=== PATIENT | female | born 1955 | race Caucasian/White ===

== ENCOUNTER 2019-11-17 16:18 | Emergency (ER) | payer OTHER ==
[2019-11-17 16:28] VITALS: BP 117/82
--- NOTE | 2019-11-17 17:44 | ER Document Report ---
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 They iced and elevated spoke with home health nurse that recommend he come in for a rule out DVT. Also spoke with [facility] and was given the same advice. Denies any trauma or injury. States pain has improved with decrease swelling after icing and elevating it. No other travel outside of going to [facility]. No history of DVT or PE. Not currently on blood thinners. Was told that the IV Fastin and can cause DVTs PE: Mild distress noted. Full range of motion with flexion, extension and lateral movement of right knee without difficulty. Nontender to palpation. Negative Homans. I have greeted and performed a rapid initial assessment of this patient. A comprehensive ED assessment and evaluation of the patient, analysis of test results and completion of the medical decision making process will be conducted by additional ED providers. I have specifically instructed the patient or family members with the patient to immediately return to any nursing staff should anything change in the patient's condition or with their chief complaint. - Related Data Home Medications: lisinopril. flonase. keppra. synthroid. chemo. lavstin. gout meds Physical Exam - Vital signs Vitals: Temp Pulse Resp BP Pulse Ox 97.5 F 96 18 117/82 97 11/17/19 16:26 11/17/19 16:26 11/17/19 16:26 11/17/19 16:26 11/17/19 16:26 Course - Vital Signs Vital signs: Temp Pulse Resp BP Pulse Ox 97.5 F 96 18 117/82 97 11/17/19 17:34 11/17/19 16:26 11/17/19 16:26 11/17/19 16:26 11/17/19 16:26
--- NOTE | 2019-11-17 18:05 | RADIOLOGY REPORT (SQ) ---
EXAM DESCRIPTION: KNEE RIGHT 4 VIEWS IMAGES COMPLETED DATE/TIME: 11/17/2019 5:57 pm REASON FOR STUDY: Pain, swelling COMPARISON: None. NUMBER OF VIEWS: Four views. TECHNIQUE: AP, lateral, and both oblique radiographic images acquired of the right knee. LIMITATIONS: None. FINDINGS: MINERALIZATION: Normal. BONES: No acute fracture or dislocation. No worrisome bone lesions. JOINT: No effusion. SOFT TISSUES: No soft tissue swelling. No radio-opaque foreign body. OTHER: No other significant finding. IMPRESSION: 1. No acute osseous findings. TECHNICAL DOCUMENTATION: JOB ID: [id number] 2010 [employer]- All Rights Reserved Reading location - IP/workstation name: [email or web address]
[2019-11-17 20:24] LABS: INTERNATIONAL RATION (INR) 0.94; PROTHROMBIN TIME 12.5 SEC (11.4-15.4)
[2019-11-17 20:30] LABS: ABSOLUTE EOSINOPHILS # (AUTO) 0.1 10^3/uL (0.0-0.6); ABSOLUTE LYMPHOCYTES (AUTO) 0.4 10^3/uL (0.5-4.7); ABSOLUTE MONOCYTES (AUTO) 0.5 10^3/uL (0.1-1.4); ABSOLUTE NEUT (AUTO) 3.9 10^3/uL (1.7-8.2); BASOPHILS % (AUTO) 0.4 % (0-2); EOSINOPHILS % (AUTO) 1.4 % (0-6); HEMATOCRIT 40.2 % (36.0-47.0); HEMOGLOBIN 13.9 g/dL (12.0-15.5); LYMPHOCYTES % (AUTO) 8.9 % (13-45); MEAN CORPUSCULAR HEMOGLOBIN 31.1 pg (27.0-33.4); MEAN CORPUSCULAR HGB CONC 34.6 g/dL (32.0-36.0); MEAN CORPUSCULAR VOLUME 90 fl (80-97); MONOCYTES % (AUTO) 9.6 % (3-13); RED BLOOD COUNT 4.48 10^6/uL (3.72-5.28); RED CELL DISTRIBUTION WIDTH 16.7 % (11.5-14.0); SEGMENTED NEUTROPHILS % (AUTO) 79.7 % (42-78); TOTAL CELLS COUNTED % (AUTO) 100 %; WHITE BLOOD COUNT 4.9 10^3/uL (4.0-10.5)
[2019-11-17 20:46] LABS: ALBUMIN 3.7 g/dL (3.5-5.0); ALKALINE PHOSPHATASE 59 U/L (38-126); ANION GAP 5 (5-19); ASPARTATE AMINO TRANSFERASE 21 U/L (14-36); BILIRUBIN,TOTAL 0.5 mg/dL (0.2-1.3); BLOOD UREA NITROGEN 24 mg/dL (7-20); CALCIUM 8.8 mg/dL (8.4-10.2); CARBON DIOXIDE 27 mmol/L (22-30); CHLORIDE 101 mmol/L (98-107); GLUCOSE 129 mg/dL (75-110); POTASSIUM 4.2 mmol/L (3.6-5.0); TOTAL PROTEIN 6.4 g/dL (6.3-8.2)
[2019-11-17 20:49] LABS: PLATELET COUNT 72 10^3/uL (150-450)
--- NOTE | 2019-11-17 21:10 | RADIOLOGY REPORT (SQ) ---
EXAM DESCRIPTION: US EXTREMITY VEINS UNILATERAL COMPLETED DATE/TME: 11/17/2019 17:40 CLINICAL HISTORY: 64 years Female Right knee pain and swelling COMPARISON: None. TECHNIQUE: Duplex imaging performed to evaluate the right lower extremity venous structures. Compression imaging and augmentation imaging performed. The common femoral, superficial femoral, popliteal, greater saphenous and posterior tibial veins were examined. FINDINGS: No thrombus is identified in the right lower extremity venous structures. IMPRESSION: No DVT is identified in the right lower extremity.
--- NOTE | 2019-11-17 23:26 | ER Document Report ---
ED Extremity Problem, Lower - General Chief Complaint: Knee Pain Stated Complaint: KNEE PAIN,SWELLING Time Seen by Provider: 11/17/19 17:37 Mode of Arrival: Ambulatory Notes: Patient is a 64-year-old female who presents emergency department with a chief complaint of right leg swelling and right knee pain. Her symptoms started 2 days ago. Patient had used ice and elevated her leg, and states that it had helped with the pain and swelling. 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 She called the on-call nurse and she was referred to the emergency department to rule out a DVT. She denies any pain at the time of my assessment. - Related Data Home Medications: lisinopril. flonase. keppra. synthroid. chemo. lavstin. gout meds Past Medical History - General Information source: Patient, Relative - Social History Smoking Status: Never Smoker Family History: Reviewed & Not Pertinent Patient has homicidal ideation: No Review of Systems - Review of Systems Notes: REVIEW OF SYSTEMS: CONSTITUTIONAL : Denies recent illness. Denies recent unintentional weight loss. Denies fever, chills, or sweats. EENT: Denies eye, ear, throat, or mouth pain, discharge, or symptoms. Denies nasal or sinus congestion. CARDIOVASCULAR: Denies chest pain. RESPIRATORY: Denies shortness of breath, cough, congestion, difficulty breathing, or wheezing. GASTROINTESTINAL: Denies nausea, vomiting, and diarrhea. Denies abdominal pain. Denies constipation. GENITOURINARY: Denies difficulty urinating, burning, blood in urine, urgency or frequency. MUSCULOSKELETAL: Denies neck and back pain. See HPI. SKIN: Denies rash, itchiness, or lesions HEMATOLOGIC : Denies easy bruising or bleeding. LYMPHATIC: Denies swollen, painful, enlarged glands. NEUROLOGICAL: Denies no numbness or tingling denies weakness. Denies headache. Denies altered mental status. Denies alteration in speech. PSYCHIATRIC: Denies stress, anxiety, alteration in sleep patterns, or depression. All other systems reviewed and negative. Physical Exam - Vital signs Vitals: Temp Pulse Resp BP Pulse Ox 97.5 F 96 18 117/82 97 11/17/19 16:26 11/17/19 16:26 11/17/19 16:26 11/17/19 16:26 11/17/19 16:26 - Notes Notes: PHYSICAL EXAMINATION: GENERAL: Appears well, healthy, well-nourished, no acute distress. HEAD: Normocephalic, atraumatic. EYES: PERRL, conjunctiva normal, all extraocular movements intact, sclera nonicteric ENT: Moist mucous membranes. NECK: Supple, no noticeable swelling, redness, rash. Normal range of motion. LUNGS: Equal breath sounds bilaterally and clear to auscultation. No wheezes rales or rhonchi. CARDIOVASCULAR: S1-S2, regular rate, regular rhythm. Radial pulses 2+, normal. ABDOMEN: Normoactive bowel sounds. Soft, nontender, no guarding, no rebound tenderness, and no masses palpated. EXTREMITIES: Normal strength and range of motion, no pitting or edema. No cyanosis. No edema appreciated on physical exam. NEUROLOGICAL: Moves all extremities upon command. Strength 5/5 in all extremities. PSYCH: Normal mood, normal affect. SKIN: Warm, dry. No rash, lesions, ulcerations noted. Normal skin turgor. Course - Re-evaluation Re-evalutation: 11/17/19 23:32 Hematology shows a low platelet count, but the patient already has a low platelet count based off her chemo. No leukocytosis or anemia noted. Coags are unremarkable. Sodium is 133. Patient plans to drink Gatorade. No DVT noted. X-ray is unremarkable. Patient will follow-up with [facility]. Follow-up precautions were given. Verbal discharge instructions were given to the patient. They verbalized understanding. They are stable for discharge. - Vital Signs Vital signs: Temp Pulse Resp BP Pulse Ox 98.0 F 68 16 117/82 97 11/18/19 00:02 11/18/19 00:02 11/18/19 00:02 11/17/19 16:26 11/18/19 00:02 - Laboratory Result Diagrams: 11/17/19 20:02 11/17/19 20:02 Laboratory results interpreted by me: 11/17/19 11/17/19 20:02 20:02 RDW 16.7 H Plt Count 72 L Lymph % (Auto) 8.9 L Absolute Lymphs (auto) 0.4 L Seg Neutrophils % 79.7 H Sodium 133.1 L BUN 24 H Glucose 129 H Discharge - Discharge Clinical Impression: Right leg swelling Condition: Stable Disposition: HOME, SELF-CARE Instructions: Ice & Elevation ([facility]) Additional Instructions: You were seen today in the emergency department for right leg swelling. Your ultrasound was normal. You do not have a blood clot. Your x-ray was normal. Continue icing and elevating your leg to help with the swelling and pain. Follow-up with [facility] as regularly scheduled.
== END 2019-11-18 00:03 | disposition home or self-care (01) ==
LOC: ER 16:18
DX: M79.89 Other specified soft tissue disorders (principal); M25.561 Pain in right knee; C71.9 Malignant neoplasm of brain, unspecified; D69.6 Thrombocytopenia, unspecified; Z79.899 Other long term (current) drug therapy
CPT/HCPCS: 36415; 80053; 85025; 85610; 93971; 99284

== ENCOUNTER 2019-12-28 22:28 | Emergency (ER) | payer OTHER ==
[2019-12-28 22:46] VITALS: BP 102/58
[2019-12-28] MEDS ORDERED: DIPH/PERTUSS(ACELL)/TETANUS VAC/PF 0.5 ML SYR (>=10YO) IM ONE (23:09)
--- NOTE | 2019-12-28 23:13 | ER Document Report ---
ED Fall - General Chief Complaint: Fall Injury Stated Complaint: ARM LACERATION Time Seen by Provider: 12/28/19 22:56 Mode of Arrival: Medic Information source: Patient, Relative - Son Notes: 64-year-old female patient presents emergency department after falling at home. Patient reports she was trying to hurry up to go to the bathroom when she tripped and fell. She landed on pavement steps. She is complaining of scrapes to her left knee and left elbow. Patient reports mild discomfort but no pain. She has been ambulatory since the fall. She denies any loss of consciousness and did not strike her head. Her tetanus is not up-to-date. She is an oncology patient and is currently undergoing chemotherapy for brain tumor. - Related data Allergies/Adverse Reactions: Iodinated Contrast Media Allergy (Verified 12/28/19 23:21) Penicillins Allergy (Verified 12/28/19 23:11) sulfamethoxazole [From Septra] Allergy (Verified 12/28/19 23:21) trimethoprim [From Febra] Allergy (Verified 12/28/19 23:21) Past Medical History - General Information source: Patient - Social History Smoking Status: Never Smoker Chew tobacco use (# tins/day): No Frequency of alcohol use: None Drug Abuse: None Family History: Reviewed & Not Pertinent Patient has homicidal ideation: No Past Surgical History: Reports: Hx Cholecystectomy Review of Systems - Review of Systems Constitutional: No symptoms reported EENT: No symptoms reported Cardiovascular: No symptoms reported Respiratory: No symptoms reported Gastrointestinal: No symptoms reported Genitourinary: No symptoms reported Female Genitourinary: No symptoms reported Musculoskeletal: See HPI Skin: See HPI Hematologic/Lymphatic: No symptoms reported Neurological/Psychological: No symptoms reported Physical Exam - Vital signs Vitals: Temp 98.3 F 12/28/19 22:41 - Notes Notes: PHYSICAL EXAMINATION: GENERAL: Well-appearing, well-nourished and in no acute distress. HEAD: Atraumatic, normocephalic. EYES: Pupils equal round and reactive to light, extraocular movements intact, conjunctiva are normal. ENT: Nares patent, oropharynx clear without exudates. Moist mucous membranes. NECK: Normal range of motion, supple without lymphadenopathy LUNGS: Breath sounds clear to auscultation bilaterally and equal. No wheezes rales or rhonchi. HEART: Regular rate and rhythm without murmurs ABDOMEN: Soft, nontender, nondistended abdomen. No guarding, no rebound. No masses appreciated. Female : deferred Musculoskeletal: Normal range of motion, no pitting or edema. No cyanosis. No tenderness to any extremities with range of motion, no crepitus or deformity on palpation. NEUROLOGICAL: Cranial nerves grossly intact. Normal speech, normal gait. Normal sensory, motor exams PSYCH: Normal mood, normal affect. SKIN: Abrasions noted to left knee and left elbow. Course - Re-evaluation Re-evalutation: 12/28/19 23:13 Patient appears well, nontoxic. Patient has no focal tenderness. Her son is at the bedside, he states that she has altered pain sensation due to her ongoing chemotherapy. She does have some pretty significant abrasions to her left knee and left elbow. We will x-ray these areas since she apparently has altered pain sensation. Likely x-rays will be negative. We will start patient on antibiotics to prevent infection, Tdap will be updated. X-rays negative. Nursing staff cleaned all abrasions and dressed them with Xeroform and Telfa. Patient will be started on antibiotics per the request of her oncologist. - Vital Signs Vital signs: Temp Pulse Resp BP Pulse Ox 98.3 F 86 20 102/58 L 94 12/28/19 22:46 12/28/19 22:46 12/28/19 22:46 12/28/19 22:46 12/28/19 22:46 Discharge - Discharge Clinical Impression: Abrasions of multiple sites Fall with injury Qualifiers: Encounter type: initial encounter Qualified Code(s): W19.XXXA - Unspecified fall, initial encounter Condition: Stable Disposition: HOME, SELF-CARE Additional Instructions: The x-rays were normal today. Please keep the dressing in place for 24 hours. Then keep the area clean and dry, change the dressing twice daily and apply a thin layer of triple antibiotic ointment and a nonstick dressing. The wounds should heal up fine. Take antibiotics as prescribed to prevent infection. Your tetanus shot was updated today. Please let your primary care provider know you are seen today so that they can schedule a follow-up appointment and a wound recheck with you. Return to the emergency department any new or worsening concerns. Prescriptions: Doxycycline Hyclate [Vibramycin 100 mg Tablet] 100 mg PO BID #14 tablet
--- NOTE | 2019-12-28 23:59 | RADIOLOGY REPORT (SQ) ---
Left elbow radiographs:12/28/2019 11:09 PM CDT HISTORY: 64-year-old patient with left elbow pain, fall. COMPARISON: None available TECHNIQUE: AP and lateral images of the left elbow were obtained. FINDINGS: The visualized soft tissues appear grossly unremarkable. No large joint effusion is noted. No abnormal soft tissue calcifications are seen. There are no findings to suggest an acute fracture or subluxation of the left elbow. IMPRESSION: There are no findings to suggest an acute fracture or subluxation of the left elbow.
--- NOTE | 2019-12-29 00:04 | RADIOLOGY REPORT (SQ) ---
EXAM: X-ray knee four or more views, left CLINICAL DATA: 64-year-old female who fell onto concrete steps with pain in patellar area with laceration TECHNICAL DATA: Four x-ray views of the left knee were performed on 12/28/2019 at 11:28 PM. COMPARISONS: None FINDINGS: There is no evidence of fracture or dislocation. There is mild narrowing of the medial joint compartment. No focal lytic or sclerotic bone lesions are seen. Bone mineralization is normal. There is minimal suprapatellar soft tissue swelling. IMPRESSION: No evidence of acute osseous injury involving the left knee. There is minimal suprapatellar soft tissue swelling. There is mild narrowing of the medial joint compartment.
== END 2019-12-29 01:00 | disposition home or self-care (01) ==
LOC: ER 22:28
DX: S80.212A Abrasion, left knee, initial encounter (principal); S50.312A Abrasion of left elbow, initial encounter; W19.XXXA Unspecified fall, initial encounter; Y92.009 Unspecified place in unspecified non-institutional (private) residence as the place of occurrence of the external cause
CPT/HCPCS: 90471; 90715; 99283

== ENCOUNTER → 2020-04-27 | Outpatient (CLI) | payer OTHER ==
[2020-04-27 14:12] LABS: HEMATOCRIT 40.6 % (36.0-47.0); HEMOGLOBIN 13.7 g/dL (12.0-15.5); MEAN CORPUSCULAR HEMOGLOBIN 31.8 pg (27.0-33.4); MEAN CORPUSCULAR HGB CONC 33.7 g/dL (32.0-36.0); MEAN CORPUSCULAR VOLUME 94 fl (80-97); PLATELET COUNT 140 10^3/uL (150-450); RED BLOOD COUNT 4.31 10^6/uL (3.72-5.28); RED CELL DISTRIBUTION WIDTH 15.8 % (11.5-14.0); WHITE BLOOD COUNT 7.1 10^3/uL (4.0-10.5)
[2020-04-27 14:31] LABS: ABSOLUTE LYMPHOCYTES# (MANUAL) 0.6 10^3/uL (0.5-4.7); ABSOLUTE MONOCYTES # (MANUAL) 0.2 10^3/uL (0.1-1.4); BAND NEUTROPHILS % (MANUAL) 3 % (3-5); BASOPHILS % (MANUAL) 0 % (0-2); EOSINOPHILS % (MANUAL) 1 % (0-6); LYMPHOCYTES % (MANUAL) 6 % (13-45); MONOCYTES % (MANUAL) 3 % (3-13); NUCLEATED RED BLOOD CELLS 1 /100 WBC (0); SEGMENTED NEUTROPHILS % (MAN) 84 % (42-78); TOTAL CELLS COUNTED 100
[2020-04-27 14:33] LABS: PLATELET COMMENT ADEQUATE; RBC MORPHOLOGY COMMENT NORMO-CYTIC/CHROMIC
== END ==
LOC: WC 11:52
PROVIDERS: ATTEND Internal Medicine Medical Oncology
DX: C71.2 Malignant neoplasm of temporal lobe (principal); I27.82 Chronic pulmonary embolism
CPT/HCPCS: 36415; 85025